=== PATIENT | male | born 1960 | race Caucasian/White ===

== ENCOUNTER 2016-10-26 12:12 | Emergency (ER) | payer MEDICAID ==
[~2016-10-26] VITALS: Ht 165.1 cm; Wt 70.0 kg
[~2016-10-26 12:12] MED LIST: HYDR-3498 PO; IBUP-1542 PO
[2016-10-26 12:14] VITALS: Ht 165.1 cm; Wt 70.0 kg
[2016-10-26] MEDS ORDERED: ACYC800T57 PO (12:40)
[2016-10-26] MEDS ORDERED: CLOT30CR24 TOP (12:40)
--- NOTE | 2016-10-26 12:54 | ERD ---
ER Documentation Chief Complaint Date/Time DATE: 10/26/16 TIME: 12:45 Chief Complaint B/L LEG NUMBNESS X 2 WEEKS , GENERALIZED RASH X 1 WEEK HPI This is a 56 year old female presenting to ER for chronic bilateral leg numbness and tingling and pruritic and burning rash x 1 week. Patient states he noticed pruritic and burning redness and raised bumps underneath bilateral armpits. Patient states rash is extremely itchy and burning at times. Patient then developed same rash to mid upper back. Patient states he has been putting "alcohol" on rash and it seems to be improving. Patient also complains of chronic bilateral leg numbness and tingling. Patient states numbness and tingling starts at bilateral hips and at times travels downward. No calf pain or tenderness. No leg swelling. Patient states he has intermittent pain to bilateral hips however none today. No loss of sensation. Patient has had this problem intermittently over the past 3 years. Patient has been to his primary care provider and states that his physician told him "everything is normal." ROS All systems reviewed and are negative except as per history of present illness. Medications Home Meds Active Scripts Clotrimazole* (Clotrimazole* AF) 1% - 30 Gm Cream.gm., 1 APPLIC TOP BID for 7 Days, TUB Prov:GOLD MCNALLY NP 10/26/16 Acyclovir* (Zovirax*) 800 Mg Tablet, 800 MG PO 5 TIMES DAILY for 7 Days, TAB Prov:GOLD MCNALLY NP 10/26/16 Hydrocodone Bit-Acetaminophen* ([place]*) 5-325 Mg Tab, 1 TAB PO QHS Y for PAIN, # 10 TAB 0 Refills Prov:MICHAEL SIDDIQUI PA-C 06/04/15 Ibuprofen* (Motrin*) 600 Mg Tab, 600 MG PO BID, #30 TAB 0 Refills Prov:MICHAEL SIDDIQUI PA-C 06/04/15 Allergies Allergies: Coded Allergies: No Known Allergy (Verified Allergy, Unknown, 11/14/07) PMhx/Soc Hx Alcohol Use: No Hx Substance Use: No Hx Tobacco Use: No Physical Exam Vitals Vital Signs Date Time Temp Pulse Resp B/P Pulse Ox O2 Delivery O2 Flow Rate FiO2 10/26/16 12:14 97.8 78 16 131/80 98 Physical Exam Const: No acute distress, alert Head: Atraumatic Eyes: Normal Conjunctiva ENT: Normal External Ears, Nose and Mouth. Neck: Full range of motion..~ No meningismus. Resp: Clear to auscultation bilaterally. No wheezing, rhonchi or crackles. Cardio: Regular rate and rhythm, no murmurs Abd: Soft, non tender, non distended. Normal bowel sounds Skin: multiple small <1mm scattered lesions to 2inchesx 2inches area underneath bilateral armpits and mid upper back. No discharge or drainage. No induration, swelling, warmth, or erythema. No sloughing. No abscess. Back: No midline or flank tenderness Ext: No cyanosis, or edema Neur: Awake and alert Psych: Normal Mood and Affect Procedures/MDM MDM: This is a 56-year-old male presenting to the emergency department for rash 1 week and chronic paresthesia to bilateral lower extremities. Multiple small <1mm scattered lesions to 2inchesx 2inches area underneath bilateral armpits and mid upper back. No discharge or drainage. No induration, swelling, warmth , or erythema. No sloughing. No abscess. No fevers or chills. Vital signs are stable. Paresthesia to bilateral lower extremities appears to be chronic and patient denies pain. No swelling. No loss of sensation. No edema to bilateral lower extremities. No chest pain, shortness breath or difficulty breathing. Patient is alert and stable throughout ED visit. Differential diagnosis includes but not limited to herpes zoster, fungal infection, bacterial infection or eczema. Low suspicion for abscess or serious bacterial infection. Differential Diagnosis includes but is not limited to back strain, vertebral fracture, herniated disc, spinal stenosis and nephrolithiasis. Low suspicion for cauda equina syndrome, acute fracture, acute dislocation, epidural abscess, malignancy and AAA rupture. Patient is appropriate for outpatient management and will be given prescription for acyclovir and clotrimazole cream. Instructed patient to follow-up with primary care provider in the next 2-3 days for reassessment. Return to ED for any high fever, chest pain, difficulty breathing, shortness breath, wheezing, vomiting, diarrhea, abdominal pain or any new or worsening symptoms. Patient verbalizes understanding. All questions answered at discharge. [place]raltarian translation use during this encounter. Departure Diagnosis: Primary Impression: Rash Additional Impression: Bilateral leg paresthesia Condition: Stable Patient Instructions: Shingles (Herpes Zoster), Fungal Infection, Skin [General ] Referrals: [facility] () Usted se bhardwaj hecho un examen mdico de control que le indica que no est en judy condicin que requiera tratamiento urgente en el Departamento de Emergencia. Un estudio ms profundo y el tratamiento de solano condicin pueden esperar sin ningn riesgo hasta que usted sea atendida/o en el consultorio de solano mdico o judy cl arlene. Es responsabilidad suya arreglar judy raghavendra para el seguimiento del manuel. MANEJO DE CONDICIONES NO URGENTES EN EL FUTURO 1) Si usted tiene un mdico de atencin primaria: Usted debera llamar a solano mdico de atencin primaria antes de venir al departamento de emergencia. Despus de las horas de consultorio, solano doctor o solano asociado/a est disponible por telfono. El mdico o enfermero de bárbara en el servicio telefnico puede asesorarle por puneet medio para atender el problema, o manuel contrario se puede programar judy raghavendra. 2) Si usted no tiene un mdico de atencin primaria: Llame al mdico o clnica de referencia que aparece abajo mark las horas de consultorio para hacer judy raghavendra para que le vean. CLINICAS: [facility] [phone] [facility] [phone] [facility] [phone] [facility] [phone] [facility] [phone] [address] [facility]. [phone] [address] [facility] () Usted se bhardwaj hecho un examen mdico de control que le indica que no est en judy condicin que requiera tratamiento urgente en el Departamento de Emergencia. Un estudio ms profundo y el tratamiento de solano condicin pueden esperar sin ningn riesgo hasta que usted sea atendida/o en el consultorio de solano mdico o judy cl arlene. Es responsabilidad suya arreglar judy raghavendra para el seguimiento del manuel. MANEJO DE CONDICIONES NO URGENTES EN EL FUTURO 1) Si usted tiene un mdico de atencin primaria: Usted debera llamar a solano mdico de atencin primaria antes de venir al departamento de emergencia. Despus de las horas de consultorio, solano doctor o solano asociado/a est disponible por telfono. El mdico o enfermero de bárbara en el servicio telefnico puede asesorarle por puneet medio para atender el problema, o manuel contrario se puede programar judy raghavendra. 2) Si usted no tiene un mdico de atencin primaria: Llame al mdico o condado institucions de referencia que aparece abajo mark las horas de consultorio para hacer judy raghavendra para que le vean. SI USTED NO PUEDE PAGAR PARA LEANDER UN MEDICO puede ir a: [facility] [address] [place] [address] [facility] [address] [place] [address] [facility] [address] [place] [address] [address] [facility] [address] [place], [place] [id number] Additional Instructions: Llame al doctor MAANA y terrie judy RAGHAVENDRA PARA DENTRO DE 2-3 ROBLEDO.Dgale a la secretaria que nosotros le instruimos hacer esta raghavendra.Avise o llame si solano condicin se empeora antes de la raghavendra. Regresa aqui si peor o no mejor. Regresar a ED por fiebre balbir, dolor en el pecho, dificultad para respirar, respiracin entrecortada, sibilancias, vmitos, diarrea, dolor abdominal o cualquier sntoma nuevo o que empeora. GOLD MCNALLY NP Oct 26, 2016 12:54
== END 2016-10-26 12:55 | disposition home or self-care (01) ==
LOC: FTE 12:12
DX: R21 Rash and other nonspecific skin eruption (principal); R20.2 Paresthesia of skin
CPT/HCPCS: 99283

== ENCOUNTER 2017-06-28 18:23 | Emergency (ER) | END 2017-06-28 20:44 | disposition home or self-care (01) ==

== ENCOUNTER 2018-04-21 09:05 | Emergency (ER) | payer BC ==
[~2018-04-21] VITALS: Ht 165.1 cm; Wt 68.8 kg
[~2018-04-21 09:05] MED LIST changes: +ACYC800T5 PO; +CLOT30CR24 TOP; +TRAM50TA2 PO
[2018-04-21 09:12] VITALS: Ht 165.1 cm; Wt 68.8 kg
[2018-04-21] MEDS ORDERED: MECLIZINE 12.5 MG TAB PO ONE (10:00)
[2018-04-21] MEDS ORDERED: ACETAMINOPHEN 325 MG TAB PO ONE (10:30)
[2018-04-21] MEDS ORDERED: MECL-77 PO (10:52)
[2018-04-21] MEDS ORDERED: CIPR7.5D LEFT EAR (10:52)
--- NOTE | 2018-04-21 10:56 | ERD ---
ER Documentation Chief Complaint Chief Complaint LET EAR BLEEDING, DIZZINESS, HEADACHE, NECK AND UPPER BACK PAIN HPI 57-year-old gentleman. Patient presents to the emergency room with approximately 1-2 days of symptoms. He describes a room spinning sensation that is worse with head movement from side to side. He also describes mild throbbing frontal and history occipital headache that is dull, gradual onset in 2 out of 10. He notes some mild blood in his left ear that was spontaneous. He denies any vision changes chest pain or shortness of breath, no other bleeding or bruising. During the patient's encounter translation services were utilized Language: [German] Source: [in person] ROS All systems reviewed and are negative except as per history of present illness. Medications Home Meds Active Scripts Ciprofloxacin Hcl/Dexameth (Ciprodex Otic Suspension) 7.5 Ml Drops.susp, 4 DROP LEFT EAR BID for 7 Days, EA Prov:RODERICK KELLY MD 04/21/18 Meclizine Hcl* (Meclizine Hcl*) 25 Mg Tablet, 25 MG PO Q8H PRN for DIZZINESS, #20 TAB Prov:RODERICK KELLY MD 04/21/18 Discontinued Scripts Tramadol HCl (Tramadol HCl) 50 Mg Tablet, 50 MG PO Q4 PRN for PAIN, #15 TAB Prov:ROSI SALCEDO MD 06/28/17 Ibuprofen* (Motrin*) 600 Mg Tab, 600 MG PO Q6, #20 TAB Prov:ROSI SALCEDO MD 06/28/17 Clotrimazole* (Clotrimazole* AF) 1% - 30 Gm Cream.gm., 1 APPLIC TOP BID for 7 D ays, TUB Prov:GOLD MCNALLY NP 10/26/16 Acyclovir* (Zovirax*) 800 Mg Tablet, 800 MG PO 5 TIMES DAILY for 7 Days, TAB Prov:GOLD MCNALLY NP 10/26/16 Hydrocodone Bit-Acetaminophen* ([place]*) 5-325 Mg Tab, 1 TAB PO QHS PRN for PAIN, #10 TAB 0 Refills Prov:MICHAEL SIDDIQUI PA-C 06/04/15 Ibuprofen* (Motrin*) 600 Mg Tab, 600 MG PO BID, #30 TAB 0 Refills Prov:MICHAEL SIDDIQUI PA-C 06/04/15 Allergies Allergies: Coded Allergies: No Known Allergy (Verified Allergy, Unknown, 11/14/07) PMhx/Soc History of Surgery: No Anesthesia Reaction: No Hx Neurological Disorder: No Hx Respiratory Disorders: No Hx Cardiac Disorders: No Hx Psychiatric Problems: No Hx Miscellaneous Medical Probl: No Hx Alcohol Use: No Hx Substance Use: No Hx Tobacco Use: No Smoking Status: Never smoker FmHx Family History: No diabetes Physical Exam Vitals Vital Signs Date Temp Pulse Resp B/P (MAP) Pulse Ox O2 O2 Flow FiO2 Time Delivery Rate 04/21/18 97.6 96 17 145/87 100 09:12 (106) Physical Exam General: Well developed, well nourished, no acute distress Head: Normocephalic, atraumatic. Eyes: Pupils equally reactive, EOM intact ENT: Moist mucous membranes, left tympanic membrane is easily visualized without evidence of perforation, it is transparent. There is a small amount of blood that is dried within the ear canal itself. No foreign body. Neck: Supple, no lymphadenopathy Respiratory: Lungs clear bilaterally, no distress Cardiovascular: RRR, no murmurs, rubs, or gallops Abdominal: Soft, non-tender, non-distended, no peritoneal signs : Deferred MSK: No edema, no unilateral swelling, 5/5 strength Neurologic: Alert and oriented, moving all extremities, normal speech, no focal weakness, no cerebellar signs, slightly reproducible horizontal nystagmus, no vertical nystagmus Skin: No rash Psych: Normal mood Result Diagram: 04/21/18 1008 Results 24 hrs Laboratory Tests Test 04/21/18 10:08 White Blood Count 6.1 10^3/ul Red Blood Count 5.04 10^6/ul Hemoglobin 14.3 g/dl Hematocrit 43.3 % Mean Corpuscular Volume 85.9 fl Mean Corpuscular Hemoglobin 28.4 pg Mean Corpuscular Hemoglobin Concent 33.0 g/dl Red Cell Distribution Width 13.5 % Platelet Count 293 10^3/UL Mean Platelet Volume 9.2 fl Immature Granulocytes % 0.200 % Neutrophils % 54.8 % Lymphocytes % 27.6 % Monocytes % 8.3 % Eosinophils % 8.4 % Basophils % 0.7 % Nucleated Red Blood Cells % 0.0 /100WBC Immature Granulocytes # 0.010 10^3/ul Neutrophils # 3.3 10^3/ul Lymphocytes # 1.7 10^3/ul Monocytes # 0.5 10^3/ul Eosinophils # 0.5 10^3/ul Basophils # 0.0 10^3/ul Nucleated Red Blood Cells # 0.0 10^3/ul Current Medications Medications Dose Sig/Ramesh Start Time Status Last (Trade) Ordered Route PRN Stop Time Admin Dose Reason Admin Meclizine 25 mg ONCE ONCE 04/21/18 DC 04/21/18 HCl PO 10:00 10:02 (Antivert) 04/21/18 10:01 650 mg ONCE ONCE 04/21/18 DC 04/21/18 Acetaminophen PO 10:30 10:12 (Tylenol 04/21/18 10:31 Tab) Procedures/MDM EKG, MONITORS, & DIAGNOSTIC IMAGING: CT brain: No acute process per radiologist read LAB INTERPRETATION: No evidence of coagulopathy MEDICAL DECISION MAKING: Patient presents with signs and symptoms consistent with peripheral vertigo. He is very reproducible symptoms with horizontal nystagmus. He is a nonfocal neurologic exam. No signs or symptoms concerning for central vertigo. Unclear significance to the patient spontaneous bleeding in the left ear canal. Topical antibiotics will be appropriate. No evidence of tympanic membrane perforation. No evidence of systemic coagulopathy. Consider dry skin. ER COURSE: * Meclizine provided * CT brain negative * Laboratory testing unremarkable * At this point the patient can be safely discharged home with primary care follow-up. He needs to use medications as needed to control symptoms and return precautions were discussed. CONSULTATION: [None] DISPOSITION PLAN: The patient does not have an identifiable emergent medical condition that warrants inpatient hospitalization at this time. The patient is deemed safe for discharge with outpatient follow-up. We discussed follow up with the patient's primary care doctor within 24 to 48 hours as needed. We also discussed return to the emergency room for worsening symptoms or worsening condition. Outpatient referral: [None required] Discharge Medications: Meclizine, Ciprodex otic Departure Diagnosis: Primary Impression: BPV (benign positional vertigo) Laterality: unspecified laterality Qualified Codes: H81.10 - Benign paroxysmal vertigo, unspecified ear Condition: Stable Patient Instructions: Benign Positional Vertigo Referrals: [facility]) Usted se bhardwaj hecho un examen mdico de control que le indica que no est en judy condicin que requiera tratamiento urgente en el Departamento de Emergencia. Un estudio ms profundo y el tratamiento de solano condicin pueden esperar sin ningn riesgo hasta que usted sea atendida/o en el consultorio de solano mdico o judy clnica. Es responsabilidad suya arreglar judy raghavendra para el seguimiento del manuel. MANEJO DE CONDICIONES NO URGENTES EN EL FUTURO 1) Si usted tiene un mdico de atencin primaria: Usted debera llamar a solano mdico de atencin primaria antes de venir al departamento de emergencia. Despus de las horas de consultorio, solano doctor o solano asociado/a est disponible por telfono. El mdico o enfermero de bárbara en el servicio telefnico puede asesorarle por puneet medio para atender el problema, o manuel contrario se puede programar judy raghavendra. 2) Si usted no tiene un mdico de atencin primaria: Llame al mdico o clnica de referencia que aparece abajo mark las horas de consultorio para hacer judy raghavendra para que le vean. CLINICAS: [facility] [phone] [facility] [phone] [facility] [phone] [address] [facility] [place] [phone] [facility] [place] [phone] [address] [facility]. [phone] [facility] () Usted se bhardwaj hecho un examen mdico de control que le indica que no est en judy condicin que requiera tratamiento urgente en el Departamento de Emergencia. Un estudio ms profundo y el tratamiento de solano condicin pueden esperar sin ningn riesgo hasta que usted sea atendida/o en el consultorio de solano mdico o judy clnica. Es responsabilidad suya arreglar judy raghavendra para el seguimiento del manuel. MANEJO DE CONDICIONES NO URGENTES EN EL FUTURO 1) Si usted tiene un mdico de atencin primaria: Usted debera llamar a solano mdico de atencin primaria antes de venir al departamento de emergencia. Despus de las horas de consultorio, solano doctor o solano asociado/a est disponible por telfono. El mdico o enfermero de bárbara en el servicio telefnico puede asesorarle por puneet medio para atender el problema, o manuel contrario se puede programar judy raghavendra. 2) Si usted no tiene un mdico de atencin primaria: Llame al mdico o condado institucions de referencia que aparece abajo mark las horas de consultorio para hacer judy raghavendra para que le vean. SI USTED NO PUEDE PAGAR PARA LEANDER UN MEDICO puede ir a: [facility] [address] [place] [address] [facility] [address] [place] [address] [facility]ATED [facility] [address] [place] [address] [address] [facility] [address] [place], [place] [id number] Additional Instructions: Llame al doctor nombrado abajo (Referral Sources) MAANA y terrie judy RAGHAVENDRA PARA DENTRO DE JUDY SEMANA. Dgale a la secretaria que nosotros le instruimos hacer esta raghavendra.Avise o llame si solano condicin se empeora antes de la raghavendra. RODERICK KELLY MD Apr 21, 2018 10:56
[2018-04-21 11:40] VITALS: BP 114/70; PULSE 63; RESP 15
[2018-05-15] MEDS ORDERED: IBUP800T48 PO (18:44)
[2018-05-15] MEDS ORDERED: CEPH-443 PO (18:44)
== END 2018-04-21 11:50 | disposition home or self-care (01) ==
LOC: E/R 09:05
DX: H81.12 Benign paroxysmal vertigo, left ear (principal); R40.2252 Coma scale, best verbal response, oriented, at arrival to emergency department; R40.2362 Coma scale, best motor response, obeys commands, at arrival to emergency department; R40.2142 Coma scale, eyes open, spontaneous, at arrival to emergency department
CPT/HCPCS: 70450; 85025; Z7610; 36415